=== PATIENT | female | born 1975 | race African-American/Black ===

== ENCOUNTER 2017-07-09 16:44 | Emergency (ER) | payer OTHER ==
[~2017-07-09] VITALS: Ht 170.2 cm; Wt 63.5 kg
[~2017-07-09 16:44] MED LIST: TRAM1TAB4 PO
[2017-07-09] MEDS ORDERED: IV NORMAL SALINE 1000ML BAG 1,000 ML IV SCH (18:03)
[2017-07-09] MEDS ORDERED: IPRATRPIUM/ALBUTEROL 0.5/2.5MG 3 ML NEBU. NEB ONE (18:15)
[2017-07-09] MEDS ORDERED: 0.9 % SODIUM CHLORIDE 10 ML DISP.SYRIN. IV ONE (18:15)
[2017-07-09] MEDS ORDERED: ASPIRIN CHEWABLE 81 MG TABLET. PO ONE (18:15)
[2017-07-09] MEDS ORDERED: methylPREDNISolone SOD SUCC PF 125 MG/2 ML VIAL. IV ONE (18:15)
--- NOTE | 2017-07-09 19:02 | PHYS DOC ---
Past Medical History Past Medical History: No Pertinent History Past Surgical History: Other Additional Past Surgical Histo: Ovarian cyst removed. Smoking: Cigarettes, Greater than 1 pack/day Alcohol Use: Rarely Drug Use: None Adult General Chief Complaint Chief Complaint: SHORTNESS OF BREATH [facility] HPI This patient is a pleasant 41 year-old female with a history of smoking presents with a two-week history of shortness of breath and nonproductive cough. She was seen here at another facility last week treated with a Z-[place] for her "" bronchitis. Patient returns today because she says that the symptoms not improve despite treatment. She denies any fever, chills, shortness of breath, chest pain only or cough. Patient says she is very tired. She is not sleeping well. Patient denies any nausea, vomiting, diarrhea she has had sick contacts at home. Patient denies any travel outside the country, weight gain, but she has had flulike symptoms or myalgias. Differential diagnosis: Acute myocardial ischemia, heart failure, cardiac tamponade, bronchospasm, pulmonary embolism, pneumothorax, pulmonary infection i.e. bronchitis or pneumonia, upper airway obstruction, anaphylaxis, aspiration , psychogenic, pulmonary contusion, toxidrome, pneumomediastinum, noncardiogenic pulmonary edema or ARDS, COPD, tuberculosis, cystic fibrosis, asthma, high altitude pulmonary edema, valvular dysfunction, cardiac dysrhythmia , stroke, neuromuscular diseases like myasthenia gravis gravis, ALS, Guillain- Singh syndrome, metabolic acidosis to include diabetic ketoacidosis, sepsis, and obstructive disorders like massive obesity Review of Systems Review of Systems Constitutional: Negative complain of subjective fevers and chills but nothing measured. Eyes: Denies change in visual acuity, redness, or eye pain [] HENT: Patient did complain of nasal congestion without sore throat Respiratory: Patient with productive cough and shortness of breath. Cardiovascular: No additional information not addressed in HPI [] GI: Denies abdominal pain, nausea, vomiting, bloody stools or diarrhea [] : Denies dysuria or hematuria [] Musculoskeletal: Denies back pain or joint pain [] Integument: Denies rash or skin lesions [] Neurologic: Denies headache, focal weakness or sensory changes [] Endocrine: Denies polyuria or polydipsia [] All other systems were reviewed and found to be within normal limits, except as documented in this note. Current Medications Current Medications Current Medications Medications (Trade) Dose Ordered Sig/Maria Isabel Start Time Stop Time Status Last Admin Dose Admin Albuterol/ Ipratropium (Duoneb) 3 ml 1X ONCE 07/09/17 18:15 07/09/17 18:16 DC Aspirin (Children'S Aspirin) 324 mg 1X ONCE 07/09/17 18:15 07/09/17 18:16 DC Lorazepam (Ativan) 1 mg 1X ONCE 07/09/17 18:15 07/09/17 18:16 DC Methylprednisolone Sodium Succinate (SOLU-Medrol 125MG VIAL) 125 mg 1X ONCE 07/09/17 18:15 07/09/17 18:16 DC Sodium Chloride 1,000 ml @ 1,000 mls/hr Q1H 07/09/17 18:03 07/09/17 19:02 DC Sodium Chloride (Normal Saline Flush) 10 ml 1X ONCE 07/09/17 18:15 07/09/17 18:16 DC Allergies Allergies Allergies Coded Allergies Type Severity Reaction Last Updated Verified No Known Drug Allergies 07/09/17 No Physical Exam Physical Exam Other vital signs recorded on the chart patient be hypertensive not tachycardic not hypoxic not tachypnea. Constitutional: Well developed, well nourished, no acute distress, non-toxic appearance. [] HENT: Normocephalic, atraumatic, bilateral external ears normal, oropharynx dry , no oral exudates, nose normal. [] Eyes: PERRLA, EOMI, conjunctiva normal, no discharge. [] Neck: Normal range of motion, no tenderness, supple, no stridor. [] Cardiovascular:Heart rate regular rhythm, no murmur [] Lungs & Thorax: Patient's breath sounds demonstrate expiratory wheeze her lung jones. She has no accessory muscle use no retractions. Patient has no consolidations no rhonchi rales or crackles Abdomen: Bowel sounds normal, soft, no tenderness, no masses, no pulsatile masses. [] Skin: Warm, dry, no erythema, no rash. [] Back: No tenderness Extremities: No tenderness, no cyanosis, no clubbing, ROM intact, no edema. [] Neurologic: Alert and oriented X 3, normal motor function, normal sensory function, no focal deficits noted. [] Psychologic: Seems a little agitated to me almost a little twitchy as she is on a stimulant or medication causing some motor agitation. 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 140 which is normal, QRS width of 86 which is normal QTC which is normal for age and gender 446. There clear right bundle was noted of RR prime in V1 and V2 there is no ST segment T-wave changes considered with acute ischemia. Radiology/Procedures Radiology/Procedures [] Course & Med Decision Making Course & Med Decision Making Pertinent Labs and Imaging studies reviewed. (See chart for details) []She was initially seen and I was worried about otitis or COPD exacerbation as patient was very wheezy throughout all lung jones. She was offered duo nebs and Solu-Medrol to the IV she was offered dictations as well as a dose of antibiotics for her suspected possible pulmonary infection. Patient refused all interventions which is prefer to rest quietly. Patient denied staff providing her an IV, completing laboratory work, or wounds. Patient did consent to a chest x-ray which point to my read which was completed at 6:37 PM point my view AP chest demonstrates no pulmonary tray, no hyperinflation, no pneumothorax, no evidence of rib fracture Dragon Disclaimer Dragon Disclaimer This electronic medical record was generated, in whole or in part, using a voice recognition dictation system. Departure Departure Impression: Primary Impression: Acute bronchitis Disposition: HOME, SELF-CARE Condition: STABLE Referrals: NO PCP (PCP) Patient Instructions: Acute Bronchitis Additional Instructions: discharge: I've spoken with the patient and/or caregivers. I've explained the patient's condition, diagnosis and treatment plan based on information available to me at this time. I've answered the patient's and/or caregivers questions and addressed any concerns. The patient and/or caregivers have a good understanding the patient's diagnosis, condition and treatment plan as can be expected at this point. Vital signs have been stabilized. The patient's condition is stable for discharge from the emergency department. The patient will pursue further outpatient evaluation with her primary care provider or other designated consulting physician as outlined in the discharge instructions. Patient and/or caregivers are agreeable to this plan of care and follow-up instructions have been explained in detail. The patient and/or caregivers have received these instructions in written format and expressed understanding of these discharge instructions. The patient and her caregivers are aware that if any significant change in condition or worsening of symptoms should prompt him to immediately return to this of the closest emergency department. If an emergent department is not readily available I would encourage him to call 911. Scripts Hydrocodone Bit/Acetaminophen (HYDROCODONE-APAP 5-325 ) 1 Each Tablet 1-2 TAB PO PRN Q6HRS Y for PAIN for 5 Days, #10 TAB 0 Refills Prov: NEL MARION MD 07/09/17 Albuterol Sulfate (PROAIR HFA INHALER) 8.5 Gm Hfa.aer.ad 1 PUFF INH PRN Q6HRS Y for SHORTNESS OF BREATH for 5 Days, INHALER 0 Refills Prov: NEL MARION MD 07/09/17 Prednisone (PREDNISONE) 50 Mg Tablet 1 TAB PO DAILY, #5 TAB Prov: NEL MARION MD 07/09/17 Doxycycline Monohydrate (DOXYCYCLINE MONOHYDRATE) 100 Mg Capsule 1 CAP PO BID, #20 CAP Prov: NEL MARION MD 07/09/17 NEL MARION MD Jul 09, 2017 19:02
[2017-07-09] MEDS ORDERED: DOXY100C14 PO (19:22)
[2017-07-09] MEDS ORDERED: PRED50TA PO (19:22)
[2017-07-09] MEDS ORDERED: HYDR-2758 PO (19:22)
[2017-07-09] MEDS ORDERED: PROAIR HFA8.5 GM INH (19:22)
[2017-07-09 19:34] VITALS: BP 127/94
--- NOTE | 2017-07-10 06:29 | EKG ---
[address] [place] [id number] Test Date: 2017-07-09 Test Time: 19:05:28 Pat Name: VESTA MUHAMMAD Department: Room: Gender: F [employer]: : [id number] Requested By: NEL MARION Order Number: [id number] Reading MD: Measurements Intervals Bruce Rate: 78 P: 61 IN: 140 QRS: -12 QRSD: 86 T: 31 QT: 388 QTc: 446 Interpretive Statements SINUS RHYTHM LEFT ATRIAL ABNORMALITY LEFTWARD AXIS INCOMPLETE RIGHT BUNDLE BRANCH BLOCK ABNORMAL ECG RI6.01 No previous ECG available for comparison
--- NOTE | 2017-07-10 08:09 | RAD ---
Indication: Shortness of air. Time of exam 1837 hours. Correlation is made with prior study from 07/10/2016. FINDINGS: The heart size is normal. The lungs are clear. No pleural effusion or pneumothorax is identified. The pulmonary vascularity is normal. IMPRESSION: No acute abnormality detected.
== END 2017-07-09 19:34 | disposition home or self-care (01) ==
LOC: ER 16:44
DX: J20.9 Acute bronchitis, unspecified (principal); F17.210 Nicotine dependence, cigarettes, uncomplicated
CPT/HCPCS: 71020; 93005; 99284-25

== ENCOUNTER → 2018-05-01 | Outpatient (CLI) | payer OTHER ==
[~2018-05-01] MED LIST changes: +DOXY100C14 PO; +HYDR-2758 PO; +PRED50TA PO; +PROAIR HFA8.5 GM INH
--- NOTE | 2018-05-01 17:17 | RAD ---
Left lower extremity venous Doppler ultrasound History: lt calf pain Comparison: None. Procedure: Color flow Doppler, Doppler spectral analysis, and 2D images are obtained with and without compression in the area of the common femoral vein, superficial femoral vein - femoral vein junction, main femoral vein (superficial femoral vein) and popliteal vein. Veins of the proximal calf are also imaged. Findings: There is normal color flow, augmentation, and compressibility of all visualized vein segments. No evidence of deep venous thrombus is present. IMPRESSION: No evidence of left lower extremity deep venous thrombosis. Electronically signed by: Efraín Colby MD (05/01/2018 5:13 PM) [id number]
== END | disposition home or self-care (01) ==
LOC: US 16:39
PROVIDERS: ATTEND Family Medicine
DX: M79.662 Pain in left lower leg (principal)
CPT/HCPCS: 93971

== ENCOUNTER 2019-05-07 07:36 | Emergency (ER) | payer OTHER ==
[~2019-05-07] VITALS: Ht 170.2 cm; Wt 59.0 kg
[~2019-05-07 07:36] MED LIST changes: +ALBU2.5V8 INH; -HYDR-2758 PO; +HYDR-2761 PO; -PROAIR HFA8.5 GM INH
[2019-05-07 07:38] VITALS: BP 141/100
[2019-05-07] MEDS ORDERED: ONDANSETRON ODT 4 MG TAB.RAPDIS. PO ONE (07:45)
[2019-05-07] MEDS ORDERED: HYDROcodone/APAP 5/325MG 1 TAB TABLET PO ONE (07:45)
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
[2019-05-07] MEDS ORDERED: HYDR-3164 PO (08:38)
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
== END 2019-05-07 08:48 | disposition home or self-care (01) ==
LOC: ER 07:36
DX: M54.2 Cervicalgia (principal); M54.5 Low back pain; M25.511 Pain in right shoulder; G89.29 Other chronic pain
CPT/HCPCS: 71045; 72040; 72100; 73030; 99284